=== PATIENT | male | born 1965 | race Caucasian/White ===

== ENCOUNTER 2017-05-21 19:37 | Emergency (ER) | payer OTHER ==
[~2017-05-21] VITALS: Ht 182.9 cm; Wt 104.7 kg
[~2017-05-21 19:37] MED LIST: OXYC-293 PO; RANI150T8 PO
[2017-05-21 19:39] VITALS: BP 146/91
[2017-05-21] MEDS ORDERED: PROPARACAINE OPHTH 0.5%, 15ML EACHEYE ONE (20:00)
[2017-05-21] MEDS ORDERED: FLUORESCEIN OPHTHALMIC 1 MG STRIP EACHEYE ONE (20:00)
[2017-05-21] MEDS ORDERED: PROPARACAINE OPHTH 0.5%, 15ML ONE (20:02)
[2017-05-21] MEDS ORDERED: FLUORESCEIN OPHTHALMIC 1 MG STRIP ONE ×2 (20:02)
== END 2017-05-21 20:56 | disposition home or self-care (01) ==
LOC: ED 20:08
DX: H10.13 Acute atopic conjunctivitis, bilateral (principal); F17.210 Nicotine dependence, cigarettes, uncomplicated
CPT/HCPCS: 99283